=== PATIENT | female | born 1940 | race Caucasian/White ===

== ENCOUNTER 2019-10-31 08:43 | Inpatient (IN) | payer BC ==
[2019-10-26 08:23] LABS: HEMATOCRIT 40.4 % (37.0-47.0); HEMOGLOBIN 13.8 gm/dL (12.0-15.0); MCH 33.1 pg (26.0-34.0); MCHC 34.3 g/dL (28.0-37.0); MCV 96.5 fL (80.0-100.0); MPV 6.1 fl. (7.2-11.1); RBC 4.18 mil/uL (4.20-5.00); RDW-CV 13.4 % (10.5-14.5); WBC 9.2 thou/uL (4.0-11.0)
[2019-10-26 08:24] LABS: URINE BILIRUBIN NEGATIVE (Negative); URINE BLOOD NEGATIVE (Negative); URINE CLARITY CLEAR; URINE COLOR YELLOW; URINE GLUCOSE-RANDOM NEGATIVE (Negative); URINE KETONES NEGATIVE (Negative); URINE LEUKOCYTES-REFLEX NEGATIVE (Negative); URINE NITRITE-REFLEX NEGATIVE (Negative); URINE PROTEIN NEGATIVE (Negative); URINE SPECIFIC GRAVITY 1.015 (1.005-1.030); URINE UROBILINOGEN 0.2 E.U./dl (0.2-1.0)
[2019-10-26 08:38] LABS: PROTIME 10.5 Seconds (9.20-11.50)
[2019-10-26 08:40] LABS: ALBUMIN 3.9 g/dL (3.4-5.0); CALCIUM 9.1 mg/dL (8.5-10.1); CREATININE 0.9 mg/dL (0.6-1.3); TOTAL BILIRUBIN 0.5 mg/dL (<0.1-1.0); TOTAL PROTEIN 7.7 g/dL (6.4-8.2)
--- NOTE | 2019-10-26 14:33 | EKG ---
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
[~2019-10-31] VITALS: Ht 162.6 cm; Wt 59.0 kg
[~2019-10-31 08:43] MED LIST: ACETAMINOPHEN500 MG PO; ALEVE220 M1 PO
[2019-10-31 09:00] VITALS: BP 150/75
[2019-10-31 17:13] VITALS: BP 75/37
--- NOTE | 2019-10-31 18:08 | NUR ---
PT A&OX4 VSS. PT HAS HEMOVAC TO R HIP, 60 ML DK RED DRAINAGE EMPTIED BY PACU PRIOR TO ARRIVING TO UNIT. POSSIBLE DC TO HOME TOMORROW. 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 FOOT PUMPS TO BLE WELL. IV TO LFA PATENT, FLUIDS RUNNING. DRESSING TO R HIP C/D/I. ICE ON SITE UPON ARRIVAL TO UNIT. DRAIN TO BE REMOVED TOMORROW PER ORDER. PT UP TO RESTROOM W/GAIT BELT AND WALKER. PT STATED SHE FELT DIZZY AND B/P CHECKED. PT FOUND TO BE HYPOTENSIVE. PT TRANSFERRED TO TO GET BACK TO BED AND FLUID BOLUS INITIATED. B/P RECHECKED AT 1800 AND 145/65. PT STATES SHE FEELS BETTER. PT RESTING IN BED WITH CALL LIGHT IN REACH. WILL CONTINUE TO MONITOR.
[2019-10-31 20:00] VITALS: BP 129/55
[2019-11-01 00:59] VITALS: BP 115/56
[2019-11-01 05:31] VITALS: BP 119/53
[2019-11-01 06:07] LABS: HEMATOCRIT 34.5 % (37.0-47.0); HEMOGLOBIN 11.7 gm/dL (12.0-15.0)
[2019-11-01 08:00] VITALS: BP 127/53
--- NOTE | 2019-11-01 11:00 | OP ---
[address] [address] OPERATIVE REPORT Name: OTIS WHITTINGTON Room: [address] IN .R.#: [id number] Admission: 10/31/19 Attend Phys: Jaden Zaidi Discharge: Date of : 42 Report #: [id number] THIS REPORT FOR: //name// cc: Chiquita Lawler MD, Kelly A. MD ~ THIS REPORT FOR: //name// CC: Chiquita Manning DATE OF SERVICE: 10/31/2019 PREOPERATIVE DIAGNOSIS: Right hip osteoarthritis. POSTOPERATIVE DIAGNOSIS: Right hip osteoarthritis. PROCEDURE: Right total hip arthroplasty with Biomet. SURGEON: Rolo Osorio II, DO. JOB COST ESTIMATOR: SANGEETA Go. ANESTHESIA: Per operative record. ESTIMATED BLOOD LOSS: 150 mL. ANTIBIOTICS: Per operative record. DRAINS: Hemovac. COMPLICATIONS: None. CONDITION: Stable to recovery room. DESCRIPTION OF PROCEDURE: The patient was taken to the operative suite and placed supine on the operating table, given appropriate anesthesia. The patient's right hip was sterilely prepped and draped. Surgery began by an anterolateral incision over the anterior portion of the hip. This was carried down to the subcutaneous tissues. A small esau was made in the tensor fascia. It was split along its fibers and retracted. An H capsulotomy was then performed utilizing cautery and Aquamantys for hemostasis. The head and neck cutting alignment guide was then applied, checked for appropriate cutting depth with the C-arm and appropriate cut was made with the reciprocating saw. The head and neck portion was removed utilizing a power corkscrew. It was sized and the appropriate reamer was then selected to the acetabulum. [place] [address] OPERATIVE REPORT Name: OTIS WHITTINGTON Room: [address] IN [facility].#: [id number] Admission: 10/31/19 Attend Phys: Jaden Zaidi Discharge: Date of : 42 Report #: [id number] removed around the acetabulum. It was then reamed in sequential fashion up to the appropriate size and the appropriate acetabular cup was then malleted into appropriate position, checked with fluoroscopic guidance, and 2 screws were placed. The metal liner was then applied. Attention was then turned back to the femur, was broached in sequential fashion up to appropriate size. This broach was then left in place and trialed the appropriate neck and head length, which showed excellent stability and excellent fit throughout all range of motion. The finals were then selected. The cup was then applied placed together on the back table and given the compression device in appropriate fashion. The femoral stem was then applied within the femur and was then malleted in position. Once again reduced in appropriate fashion and checked for range of motion and stability and excellent range of motion and stability of the knee throughout all range of motion. Final x-rays were taken with C-arm confirming excellent anatomic leg length and implant position. Final irrigation was performed of the hip. It was then drained of irrigation fluid. Hemovac drain was applied. The wound VAC was utilized to close the capsule and 1 Vicryl was utilized to close the fascia. Skin was closed with 2-0 Vicryl and running Monocryl stitch. Dermabond and sterile dressing applied. The patient transported to recovery room in stable condition. Counts were correct throughout the procedure. <ELECTRONICALLY SIGNED> By: Rolo Osorio II, 11/01/19 1100 [id number] Osorio II, DO /nt
--- NOTE | 2019-11-01 14:29 | NUR ---
ASSUMED CARE OF PT APPROX 0730. REASSESMENT COMPLETED CHARTED. MEDICATION GIVEN CHARTED. PT UP TO BEDSIDE CHAIR FOR BREAKFAST. PT WORKED WITH THERAPY THIS AM, TOLERATED WELL. PT BACK TO BED AFTER LUNCH. PT AMBULATED WITH THERAPY IN HALLWAY WITH WALKER THIS AFTERNOON. SAFTEY PRECAUTIONS UTILIZED, HOURLY ROUNDING.
[2019-11-01 20:00] VITALS: BP 113/46
[2019-11-02 02:00] VITALS: BP 106/51
[2019-11-02 04:00] VITALS: BP 119/46
[2019-11-02 04:55] LABS: HEMATOCRIT 30.5 % (37.0-47.0); HEMOGLOBIN 10.5 gm/dL (12.0-15.0)
[2019-11-02 05:01] LABS: CALCIUM 7.8 mg/dL (8.5-10.1); CREATININE 0.7 mg/dL (0.6-1.3); MAGNESIUM 1.9 mg/dL (1.8-2.4); POTASSIUM 3.7 mmol/L (3.5-5.1)
--- NOTE | 2019-11-02 05:51 | NUR ---
PATIENT SLEPT MOST OF THE NIGHT. DRESSING TO RIGHT HIP REMAINS INTACT. PATIENT WAS GIVEN PAIN MEDICINE ONCE THIS SHIFT. PATIENT IS POSSIBLY GOING HOME TODAY. WILL CONTINUE TO MONITOR.
[2019-11-02 07:46] VITALS: BP 133/38
[2019-11-02] MEDS ORDERED: XARELTO10 MG PO (09:58)
[2019-11-02] MEDS ORDERED: TRAMADOL 50 MG50 MG PO (09:58)
[2019-11-02] MEDS ORDERED: LIDOPATCH1 EACH TOP (09:58)
[2019-11-02 10:15] VITALS: BP 119/46
[2019-11-02 13:41] VITALS: BP 119/46
--- NOTE | 2019-11-02 13:42 | NUR ---
SW called pt to complete initial assessment and discuss safe dc planning. Pt to dc home with today. Pt has RW that she borrowed from her sister and said she did not need one arranged at this time. DORIS discussed HH options with pt and pt chose [facility]. DORIS called [facility] intake and faxed referral and dc summary/orders to accept and provide follow up services. Pt plans to call a ride home. No other dc needs expressed at this time. [facility] [phone]
--- NOTE | 2019-11-02 14:56 | NUR ---
PATIENT TAKEN BY WHEELCHAIR TO CAR WITH FAMILY. ALL BELONGINGS, D.C INSTRUCTIONS AND MEDICATION SCRIPTS SENT WITH PATIENT. ALL QUESTIONS ANSWERED. PATIENT GIVEN HOME HEALTH INFO WELL.
== END 2019-11-02 14:55 | disposition home health service (06) | DRG 469 ==
LOC: M.3W 08:43 → M.TBA 08:43 → M.PRE 09:18 → M.3W 14:09 → M.PRE 14:28 → M.3W 11-02 14:55
PROVIDERS: Internal Medicine; Orthopaedic Surgery; ADMIT Internal Medicine
PROC: 0SR903A Replacement of Right Hip Joint with Ceramic Synthetic Substitute, Uncemented, Open Approach (ICD-10-PCS; principal; 2019-10-31)
DX: M16.11 Unilateral primary osteoarthritis, right hip (principal); J96.01 Acute respiratory failure with hypoxia; Z96.1 Presence of intraocular lens; E78.5 Hyperlipidemia, unspecified; Z98.49 Cataract extraction status, unspecified eye; Z79.899 Other long term (current) drug therapy; Z72.89 Other problems related to lifestyle; Z03.818 Encounter for observation for suspected exposure to other biological agents ruled out; D64.9 Anemia, unspecified